=== PATIENT | male | born 1965 | race Asian ===

== ENCOUNTER 2018-07-19 10:02 | Day surgery (SDC) | payer OTHER ==
[~2018-07-19] VITALS: Ht 165.1 cm; Wt 63.0 kg
[2018-07-19] MEDS ORDERED: FLUTICASONE PRO (12:01)
[2018-07-19] MEDS ORDERED: PANTOPRAZOLE (12:01)
[2018-07-19] MEDS ORDERED: FERROUS SULFATE (12:01)
[2018-07-19] MEDS ORDERED: OYSCO (12:01)
[2018-07-19] MEDS ORDERED: METFORMIN (12:01)
[2018-07-19] MEDS ORDERED: [UNRECOGNIZED DRUG - OTHER] (12:01)
[2018-07-19] MEDS ORDERED: ROSUVASTATIN CALCIUM (12:01)
[2018-07-19] MEDS ORDERED: MELOXICAM (12:01)
[2018-07-19] MEDS ORDERED: GABAPENTIN (12:01)
[2018-07-19] MEDS ORDERED: LORATADINE (12:01)
[2018-07-19] MEDS ORDERED: VENTOLIN HFA (12:01)
[2018-07-19] MEDS ORDERED: FENOFIBRATE (12:01)
[2018-07-19] MEDS ORDERED: MONTELUKAST SODIUM (12:01)
[2018-07-19] MEDS ORDERED: AZELASTINE HCL (12:01)
[2018-07-19 12:04] VITALS: Ht 165.1 cm; Wt 63.0 kg
[2018-07-19 12:27] VITALS: BP 142/85; PULSE 60; RESP 18
--- NOTE | 2018-07-19 12:38 | PREAC ---
Date/Time of Note Date/Time of Note DATE: 07/19/18 TIME: 12:37 Anesthesia Eval and Record Evaluation Time Pre-Procedure Interview DATE: 07/19/18 TIME: 12:37 Age 53 Sex male NPO: 8 hrs Preoperative diagnosis gerd Planned procedure egd, colonoscopy Past Medical History Past Medical History: Includes Cardio: HTN, Dyslipidemia Endo: Diabetes Pulm: Asthma GI: GERD Surgery & Anesthesia Issues No known issue Meds Anticoagulation: No Beta Joyce within 24 hr: No Reason Beta Joyce not given: Pt. not on B-Joyce Reported Medications [Azelastine Hcl] No Conflict Check 07/19/18 [Montelukast Sodium] No Conflict Check 07/19/18 [Loratadine] No Conflict Check 07/19/18 [Pantoprazole] No Conflict Check 07/19/18 [Oysco 500+D] No Conflict Check 07/19/18 [Ventolin Hfa] No Conflict Check 07/19/18 [Ferrous Sulfate] No Conflict Check 07/19/18 [Meloxicam] No Conflict Check 07/19/18 [Gabapentin ] No Conflict Check 07/19/18 [Fluticasone Pro] No Conflict Check 07/19/18 [Rosuvastatin Calcium] No Conflict Check 07/19/18 [Fenofibrate] No Conflict Check 07/19/18 [Metformin ] No Conflict Check 07/19/18 Meds reviewed: Yes Allergies Coded Allergies: No Known Allergy (Unverified , 07/19/18) Allergies Reviewed: Yes Labs/Studies Labs Reviewed: Reviewed by anesthesiologist test: N/A Pre-procedure Exam Last vitals Vital Signs Date Temp Pulse Resp B/P (MAP) Pulse Ox O2 O2 Flow FiO2 Time Delivery Rate 07/19/18 97.7 60 18 142/85 100 Room Air 12:27 (104) Airway: Adequate mouth opening, Adequate thyromental dist Mallampati: Mallampati II Teeth: Normal Lung: Normal Heart: Normal ASA Physical Status ASA physical status: 3 Emergency: None Planned Anesthetic General/MAC: Mask, MAC Pre-operative Attestations Prior to commencing anesthesia and surgery, the patient was re-evaluated, there was verification of: *The patient's identity *The results of appropriate recent lab work and preoperative vital signs *The above evaluation not changing prior to induction *Anesthetic plan, risk benefits, alternative and complications discussed with patient/family; questions answered; patient/family understands, accepts and wishes to proceed. FELISA LORA Jul 19, 2018 12:38
--- NOTE | 2018-07-19 13:29 | HPN ---
Date/Time of Note Date/Time of Note DATE: 07/19/18 TIME: 13:29 Interval H&P Admission Note Pt. seen H&P reviewed: No system changes DEZ DURAN Jul 19, 2018 13:29
--- NOTE | 2018-07-19 13:37 | PAC ---
Date/Time of Note Date/Time of Note DATE: 07/19/18 TIME: 13:37 Post-Anesthesia Notes Post-Anesthesia Note Last documented vital signs Vital Signs Date Temp Pulse Resp B/P (MAP) Pulse Ox O2 O2 Flow FiO2 Time Delivery Rate 07/19/18 97.7 60 18 142/85 100 Room Air 12:27 (104) Activity: WNL Respiratory function: WNL Cardiovascular function: WNL Mental status: Baseline Pain reasonably controlled: Yes Hydration appropriate: Yes Nausea/Vomiting absent: Yes FELISA LROA Jul 19, 2018 13:37
== END 2018-07-19 14:57 | disposition home or self-care (01) ==
LOC: GIL 10:02
PROVIDERS: ATTEND Internal Medicine Gastroenterology
DX: Z12.11 Encounter for screening for malignant neoplasm of colon (principal); K21.9 Gastro-esophageal reflux disease without esophagitis; I10 Essential (primary) hypertension; E11.9 Type 2 diabetes mellitus without complications; J45.909 Unspecified asthma, uncomplicated
CPT/HCPCS: 43239; 45378; 82962; 88305; Z7610